=== PATIENT | male | born 1990 | race Caucasian/White ===

== ENCOUNTER 2016-11-21 17:43 | Emergency (ER) | payer SELFPAY ==
--- NOTE | 2016-11-21 17:44 | EDPHY ---
H & P Time Seen by Provider: 11/21/16 17:44 Constitutional: Initial Vital Signs Temperature (C) 36.2 C 11/21/16 17:43 Heart Rate 86 11/21/16 17:43 Respiratory Rate 18 11/21/16 17:43 Blood Pressure 164/120 H 11/21/16 17:43 O2 Sat (%) 96 11/21/16 17:43 O2 Delivery Mode Room Air Allergies/Adverse Reactions: No Known Allergies Allergy (Unverified 11/21/16 18:24) Home Medications: Medication Instructions Recorded NK [No Known Home Meds] 11/21/16 Medical Decision Making ED Course/Re-evaluation: CHIEF COMPLAINT: Alcohol intoxication. HISTORY OF PRESENT ILLNESS: The patient is a 26 year old male who presents to the Emergency Department with alcohol intoxication. Patient denies any injuries denies loss of consciousness denies any recent trauma. Patient denies co- ingestion. Patient denies suicidal or homicidal behavior. REVIEW OF SYSTEMS: A 10 point review of systems was performed and is negative with the exception of the elements mentioned in the history of present illness. PHYSICAL EXAM: General Appearance: Alert, well hydrated, appropriate, and non-toxic appearing. Head: Atraumatic without scalp tenderness or obvious injury Eyes: Pupils equal, round, reactive to light and accommodation, EOMI, no trauma , no injection. Ears: Clear bilaterally, no perforation, normal landmarks Nose: Atraumatic, no rhinorrhea, clear. Throat: There is no erythema or exudates, no lesions, normal tonsils, mucus membranes moist. Neck: Supple, 2+ carotid upstroke, nontender, no lymphadenopathy. Respiratory: No retractions, no distress, no wheezes, and no accessory muscle use. Lungs are clear to auscultation bilaterally. Cardiovascular: Regular rate and rhythm, no murmurs, rubs, or gallops. Bilateral carotid, radial, dorsalis pedis, and posterior tibial pulses intact. Good capillary refill all extremities. Gastrointestinal: Abdomen is soft, nontender, non-distended, no masses, no rebound, no guarding, no peritoneal signs. Musculoskeletal: Normal active ROM of all extremities, atraumatic. Neurological: Alert, appropriate, and interactive. The patient has normal DTRs and non-focal cranial nerves, motor, sensory, and cerebellar exam. Skin: No rashes, good turgor, no nodules on palpation. PAST MEDICAL HISTORY: Non-contributory. PAST SURGICAL HISTORY: Non-contributory. SOCIAL HISTORY: Alcohol abuse. DIFFERENTIAL DIAGNOSIS: The differential diagnoses for the patient's intoxication include but are not limited to: alcohol intoxication, drug consumption, alcohol delirium. MEDICAL DECISION MAKING: I serially examined this patient since the patient's arrival here in the emergency department. The patient continues to become more and more sober with each examination. I serially questioned the patient and the patient's story given initially has not changed. The patient still denies any trauma, any head injury, and any illicit drug use. At this point, the patient is walking the department freely and is clinically sober. We're discharging the patient to the [facility] in stable condition. Departure - Departure Disposition: Home, Routine, Self-Care Clinical Impression: Alcoholic intoxication Qualifiers: Complication of substance-induced condition: uncomplicated Qualifier Code: ( F10.120) Alcohol abuse with intoxication, uncomplicated Condition: Good Instructions: Alcohol Intoxication (ED) Additional Instructions: 1. Do not drink alcohol excessively. 2. Go directly to the [facility] should you wish to pursue alcohol detoxification. 3. Return to the Emergency Department if you experience uncontrollable vomiting , tremors, seizure, confusion, or other serious concerns. Referrals: [facility] [Outside] - As per Instructions Report Scribed for: Zeb Cortés Report Scribed by: Tierra Syed Date of Report: 11/21/16 Time of Report: 18:06
[2016-11-21 18:04] VITALS: RESP 18; O2SAT 96
[2016-11-21 19:03] VITALS: BP 152/93; PULSE 92; TEMP 98.4
== END 2016-11-21 18:58 | disposition home or self-care (01) ==
DX: F10.120 Alcohol abuse with intoxication, uncomplicated (principal)